=== PATIENT | male | born 1985 | race American Indian/Alaskan Native ===

== ENCOUNTER 2021-06-30 10:24 | Emergency (ER) | payer SELFPAY ==
[2021-06-30] MEDS: IBUPROFEN 800 MG TAB PO ONE (12:52)
--- NOTE | 2021-06-30 17:41 | Emergency Department Report ---
ED General Adult HPI - General Chief complaint: Sore Throat Stated complaint: SORE THROAT,SWOLLEN TONSILS PUI?: Yes Time Seen by Provider: 06/30/21 17:28 Source: patient, RN notes reviewed Mode of arrival: Ambulatory Limitations: No Limitations - History of Present Illness Initial comments: The patient is a 36-year-old gentleman who is not COVID-19 vaccinated, who was recently treated for strep throat, diagnosed in [facility]. He was diagnosed at the beginning of June 17, and completed a 10-day antibiotic course, reportedly completing his antibiotics last week on the . Symptoms at that time included fever, and sore throat. He reports a positive strep test in [place]. He states that he had complete resolution of symptoms, and then, over the past 2 to 3 days, has developed recurrence of fever and sore throat. No neck pain or neck stiffness. Positive body aches. He is able to eat and drink. He is taking Tylenol and Motrin [id number]. No loss of taste or smell. Positive improvement with symptoms here in the emergency room, with Tylenol and Motrin. -: days(s) Severity scale (0 -10): 10 Consistency: constant Improves with: medication, rest - Related Data Previous Rx's Medication Instructions Recorded Last Taken Type Acetaminophen [Non-Aspirin Extra 650 mg PO Q6HR PRN #30 tablet 06/30/21 Unknown Rx Strength] Ibuprofen [Motrin] 600 mg PO Q8H PRN #30 tablet 06/30/21 Unknown Rx Allergies Allergy/AdvReac Type Severity Reaction Status Date / Time No Known Allergies Allergy Unverified 06/30/21 12:42 ED Review of Systems ROS: Stated complaint: SORE THROAT,SWOLLEN TONSILS Other details as noted in HPI Constitutional: fever, malaise, weakness Eyes: denies: eye discharge ENT: throat pain. denies: epistaxis, congestion Respiratory: denies: cough Cardiovascular: denies: chest pain Gastrointestinal: denies: abdominal pain Musculoskeletal: arthralgia, myalgia Neurological: headache, weakness ED Past Medical Hx - Medications Home Medications: Home Medications Medication Instructions Recorded Confirmed Last Taken Type Acetaminophen [Non-Aspirin Extra 650 mg PO Q6HR PRN #30 tablet 06/30/21 Unknown Rx Strength] Ibuprofen [Motrin] 600 mg PO Q8H PRN #30 tablet 06/30/21 Unknown Rx ED Physical Exam - General Limitations: No Limitations General appearance: alert, anxious - Head Head exam: Present: atraumatic, normocephalic - Eye Eye exam: Present: normal appearance, PERRL, EOMI. Absent: nystagmus - ENT ENT exam: Present: normal exam, mucous membranes moist, normal external ear exam, other (No pharyngeal exudates are noted. The uvula is midline. The tonsils are symmetric. There is tonsillar erythema). Absent: normal orophraynx - Neck Neck exam: Present: normal inspection, full ROM, lymphadenopathy, other (The neck is supple. There is no tenderness. There is no stridor. There are no meningeal signs). Absent: tenderness, meningismus - Respiratory Respiratory exam: Present: normal lung sounds bilaterally. Absent: respiratory distress, wheezes, rales, rhonchi, stridor - Cardiovascular Cardiovascular Exam: Present: normal rhythm, tachycardia, normal heart sounds. Absent: bradycardia, irregular rhythm, systolic murmur, diastolic murmur, rubs, gallop - GI/Abdominal GI/Abdominal exam: Present: soft. Absent: distended, tenderness, rebound, rigid, pulsatile mass - Rectal Rectal exam: Present: deferred - Extremities Exam Extremities exam: Present: normal inspection, full ROM, other (2+ pulses noted in the bilateral upper extremities. There is no long bony tenderness. The muscular compartments are soft. The pelvis is stable.). Absent: pedal edema, calf tenderness - Back Exam Back exam: Present: normal inspection, full ROM. Absent: tenderness, CVA tenderness (R), CVA tenderness (L), paraspinal tenderness, vertebral tenderness - Neurological Exam Neurological exam: Present: alert, oriented X3, normal gait, other (No facial droop. Tongue midline. Extraocular movements intact bilaterally. Facial sensation intact to light touch in V1, V2, V3 distribution bilaterally. 5 and a 5 strength in 4 extremities. Sensation intact to light touch in 4 extremities.). Absent: motor sensory deficit - Psychiatric Psychiatric exam: Present: anxious - Skin Skin exam: Present: warm, dry, intact, normal color. Absent: rash ED Course Vital Signs 06/30/21 06/30/21 12:45 18:07 Temperature 102.2 F H 100.4 F H Pulse Rate 102 H 94 H Respiratory 18 16 Rate Blood Pressure 165/90 143/95 [Right] O2 Sat by Pulse 97 100 Oximetry ED Medical Decision Making - Lab Data Vital Signs 06/30/21 06/30/21 12:45 18:07 Temperature 102.2 F H 100.4 F H Pulse Rate 102 H 94 H Respiratory 18 16 Rate Blood Pressure 165/90 143/95 [Right] O2 Sat by Pulse 97 100 Oximetry Lab Results 06/30/21 Range/Units Unknown Group A Strep Rapid Negative (Negative) - Medical Decision Making Differential diagnosis, including but not limited to: Strep, influenza, COVID- 19, viral syndrome Assessment and plan: 36-year-old gentleman presenting with fever and sore throat. His tachycardia has resolved. He is tolerating liquid feeds. He is not stridulous. The neck is supple, there is no tracheal tenderness, the uvula is midline, and the tonsils are also symmetric. Based off of this, I do not suspect deep space neck infection at this time. Patient counseled to complete COVID-19 vaccination series. Take Tylenol, Motrin, advance diet as tolerated, follow-up with outpatient primary care. Return precautions reviewed. All questions answered Critical care attestation.: If time is entered above; I have spent that time in minutes in the direct care of this critically ill patient, excluding procedure time. ED Disposition Clinical Impression: Pharyngitis, COVID-19 vaccination not done Disposition: 01 HOME / SELF CARE / HOMELESS Is pt being admited?: No Condition: Good Instructions: Sore Throat, [id number] Additional Instructions: Please take the pain medications as needed and directed. Advance diet as tolerated. Use salt water gargles liberally as needed for pain control. Cultures were sent today, and results will be available in the next 3 to 5 days. Please have your primary care doctor contact the medical records department to obtain culture results. Recommend follow-up with a primary care doctor in the next 5 to 7 days for repeat checkup and evaluation. Recommend outpatient COVID-19 testing, and completion of COVID-19 vaccination series when asymptomatic and medically cleared to do so. Please return to the emergency room right away with new pain, worsened pain, migration of pain, projectile vomiting, change in mental status, confusion, inability tolerate liquid feeds, new, worsened or different symptoms not present on the initial emergency room evaluation Referrals: [facility] [Provider Group] - 3-5 Days CARBUCCIA,CAMPBELL, MD [Staff Physician] - 3-5 Days Forms: Work/School Release Form(ED)
[2021-06-30] MEDS: ACETAMINOPHEN 325 MG/10.15 ML ORAL LIQD UNIT DOSE PO ONE (18:19)
[2021-06-30 18:57] VITALS: BP 124/82
== END 2021-06-30 18:57 | disposition home or self-care (01) ==
LOC: ED 10:24
DX: J02.9 Acute pharyngitis, unspecified (principal); Z79.899 Other long term (current) drug therapy
CPT/HCPCS: 87116; 87430; 99283